=== PATIENT | male | born 1995 | race Two or more races ===

== ENCOUNTER 2019-01-13 01:11 | Emergency (ER) | payer MEDICAID ==
[2019-01-13] MEDS ORDERED: ALBUTEROL INH PREPACK MDI TAKEHOME ONE ×2 (01:22→01:24)
--- NOTE | 2019-01-13 01:25 | EDPHY ---
H & P Stated Complaint: cough Time Seen by Provider: 01/13/19 01:17 HPI/ROS: Chief Complaint: Cough, sore throat HPI: 23-year-old male woke this morning with cough and sore throat. States he has been able swallow with some difficulty. Cough is productive of some yellowish sputum. No fevers or chills. No recent illness. No nausea or vomiting. He has been able to swallow without any difficulty. Hurts primarily in his throat to take a deep breath. ROS: 10 systems were reviewed and were negative except those elements noted in the HPI. PMH: Denies Social History: Positive smoking, positive alcohol, positive marijuana Family History: non-contributory Physical Exam: Gen: Awake, Alert, No Distress HEENT: Nose: no rhinorrhea Eyes: PERRLA, EOMI Mouth: Moist mucosa diffuse oral pharyngeal erythema without edema or exudate Neck: Supple, no JVD Chest: nontender, mild diffuse expiratory wheezing without focal rales or rhonchi Heart: S1, S2 normal, no murmur Abd: Soft, non-tender, no guarding Back: no CVA tenderness, no midline tenderness Ext: no edema, non-tender Skin: no rash Neuro: CN II-XII intact, Sensation grossly intact, Strength 5/5 in bilateral upper and lower extremities - Personal History Current Tetanus/Diphtheria Vaccine: Yes Current Tetanus Diphtheria and Acellular Pertussis (TDAP): Yes - Medical/Surgical History Hx Asthma: Yes Hx Chronic Respiratory Disease: No Hx Diabetes: No Hx Cardiac Disease: No Hx Renal Disease: No Hx Cirrhosis: No Hx Alcoholism: No Hx HIV/AIDS: No Hx Splenectomy or Spleen Trauma: No - Social History Smoking Status: Current every day smoker Constitutional: Initial Vital Signs Temperature (C) 36.8 C 01/13/19 01:14 Heart Rate 111 H 01/13/19 01:14 Respiratory Rate 20 01/13/19 01:14 Blood Pressure 116/76 01/13/19 01:14 O2 Sat (%) 99 01/13/19 01:14 O2 Delivery Mode Room Air Medical Decision Making ED Course/Re-evaluation: Rapid strep is negative. Symptoms consistent with acute bronchitis. No focal findings on his exam. He is afebrile. Oxygen saturation 99%. No increased work of breathing. Improved with albuterol MDI. Will discharge with albuterol p.r.n., follow up with primary care as an outpatient. - Data Points Laboratory Results: 01/13/19 01/13/19 Unknown 00:20 Group A Strep Screen NEGATIVE (NEGATIVE) Group A Strep DNA Pending Medications Given: Discontinued Medications Albuterol Sulfate (Proventil Inh Prepack) 1 mdi ANABELLE GARCIA ONE Stop: 01/13/19 01:25 Last Admin: 01/13/19 01:26 Dose: 1 mdi Departure - Departure Disposition: Home, Routine, Self-Care Clinical Impression: Acute bronchitis Condition: Good Instructions: Albuterol (By breathing), Acute Bronchitis (ED) Additional Instructions: May use the albuterol inhaler, 2 puffs every 4 hr as needed for cough or wheeze. Alternate acetaminophen (1000 mg) with ibuprofen (400 mg) every 4 hours as needed for fevers, chills, aches or pain. Follow up with primary care physician in 3-4 days for further evaluation. Return to the emergency department for worsening cough, chest pain, shortness of breath, uncontrolled fevers or chills, or any other concerns. Referrals: Serg Starks MD [Medical Doctor] - As per Instructions
[2019-01-13 02:14] VITALS: BP 118/77
== END 2019-01-13 02:13 | disposition home or self-care (01) ==
DX: J20.9 Acute bronchitis, unspecified (principal)

== ENCOUNTER 2019-01-21 20:50 | Emergency (ER) | payer MEDICAID ==
--- NOTE | 2019-01-21 21:05 | EDPHY ---
H & P Time Seen by Provider: 01/21/19 21:04 HPI/ROS: CHIEF COMPLAINT: Earache HISTORY OF PRESENT ILLNESS: 23-year-old male presents with left ear pain. Onset of upper respiratory infection 10 days ago. Continues to have a mild cough. Using albuterol inhaler as needed. Onset of left ear pain and decreased hearing today. The pain is moderate and persistent. No fever. REVIEW OF SYSTEMS: complete 10 point ROS reviewed and is negative except for the noted elements in the HPI - Medical/Surgical History Hx Asthma: Yes Hx Chronic Respiratory Disease: No Hx Diabetes: No Hx Cardiac Disease: No Hx Renal Disease: No Hx Cirrhosis: No Hx Alcoholism: No Hx HIV/AIDS: No Hx Splenectomy or Spleen Trauma: No - Social History Smoking Status: Current every day smoker Alcohol Use: Sober - Physical Exam Exam: General Appearance: Alert, pleasant Eyes: Pupils equal and round, no conjunctival pallor or injection ENT, Mouth: Mucous membranes moist, left tympanic membrane is opaque and bulging Neck: Normal inspection Respiratory: Lungs are clear to auscultation, no wheezing Cardiovascular: Regular rate and rhythm Neurological: A&O, nonfocal, normal gait Skin: Warm and dry Psychiatric: Mood and affect normal Constitutional: Initial Vital Signs Temperature (C) 36.8 C 01/21/19 21:05 Heart Rate 119 H 01/21/19 21:05 Respiratory Rate 18 01/21/19 21:05 Blood Pressure 127/80 H 01/21/19 21:05 O2 Sat (%) 97 01/21/19 21:05 O2 Delivery Mode Room Air Allergies/Adverse Reactions: No Known Allergies Allergy (Unverified 01/21/19 21:04) Home Medications: Medication Instructions Recorded Albuterol 01/21/19 Albuterol [Proventil Inhaler HFA 2 puffs IH QID PRN #1 mdi 01/21/19 (*)] Azithromycin [Zithromax] 250 mg PO DAILY #6 tab 01/21/19 Medical Decision Making ED Course/Re-evaluation: This patient presents with left otitis media. Rx: Zithromax Departure - Departure Disposition: Home, Routine, Self-Care Clinical Impression: Acute otitis media Condition: Good Instructions: Ear Infection (ED) Referrals: Fercho Lucas MD [Medical Doctor] - As per Instructions Prescriptions: Albuterol [Proventil Inhaler HFA (*)] 2 puffs IH QID PRN #1 mdi PRN Reason: Short Of Breath/Dyspnea Azithromycin [Zithromax] 250 mg PO DAILY #6 tab
[2019-01-21 21:07] VITALS: BP 127/80
== END 2019-01-21 21:33 | disposition home or self-care (01) ==
DX: H66.92 Otitis media, unspecified, left ear (principal)